=== PATIENT | female | born 2000 | race Two or more races ===

== ENCOUNTER 2020-12-28 08:23 | Outpatient (CLI) | payer BC ==
[2020-12-28 09:16] LABS: BILIRUBIN,URINE NEGATIVE (NEGATIVE); COLOR,URINE YELLOW (YELLOW); LEUKOCYTE ESTERASE ,URINE LARGE (NEGATIVE); NITRITE, URINE POSITIVE (NEGATIVE); PROTEIN,URINE NEGATIVE (NEGATIVE); UGLUCOSE NEGATIVE (NEGATIVE); UROBILINOGEN,URINE 0.2 EU/dL (0.2)
[2020-12-28 09:19] LABS: BASOPHILS % (AUTO) 0.4 % (0.0-2.0); EOSINOPHILS % (AUTO) 4.5 % (0.0-6.0); HEMATOCRIT 44 % (33-45); HEMOGLOBIN 14.4 g/dL (11.5-14.8); LYMPHOCYTES # (AUTO) 1.1 /CMM (0.8-4.8); LYMPHOCYTES % (AUTO) 24.5 % (20.0-44.0); MEAN CORPUSCULAR HGB CONC 33 g/dl (31.0-36.0); MEAN CORPUSCULAR VOLUME 91 fL (82-100); MONOCYTES # (AUTO) 0.5 /CMM (0.1-1.30); MONOCYTES % (AUTO) 10.4 % (2.0-12.0); NEUTROPHILS # (AUTO) 2.8 /CMM (1.8-8.9); NEUTROPHILS % (AUTO) 60.2 % (43.0-81.0); PLATELET COUNT (AUTO) 205 /CMM (150-450); RED BLOOD CELL COUNT(AUTO) 4.84 MIL/uL (4.0-5.2); WHITE BLOOD COUNT (AUTO) 4.6 K/uL (4.3-11.0)
[2020-12-28 09:50] LABS: THYROID STIMULATING HORMONE 1.256 uIU/mL (0.358-3.74)
[2020-12-28 10:05] LABS: ALBUMIN 3.7 g/dL (3.4-5.0); BILIRUBIN,TOTAL 0.3 mg/dL (0.2-1.0); CALCIUM, SERUM 8.6 mg/dL (8.5-10.1); CREATININE 0.5 mg/dL (0.6-1.3); POTASSIUM 3.6 mmol/L (3.5-5.1); TOTAL PROTEIN, SERUM 7.7 g/dL (6.4-8.2)
[2020-12-28 11:20] LABS: BACTERIA,URINE Many /HPF (None Seen); SQUAMOUS EPITHELIAL CELL,UR Moderate /HPF (None Seen); WBC,URINE TOO NUMEROUS TO COUN /HPF (0-3)
== END 2020-12-28 23:59 | disposition home or self-care (01) ==
LOC: LAB 08:23
PROVIDERS: ATTEND Family Medicine
DX: Z00.01 Encounter for general adult medical examination with abnormal findings (principal); Z91.018 Allergy to other foods
CPT/HCPCS: 80053-TC; 80061-TC; 81001; 82306; 82607-TC; 84439-TC; 84443-TC; 85025-TC; 86592; 87086-TC; 87491; 87591; 87806

== ENCOUNTER 2021-01-18 09:37 | Outpatient (CLI) | payer BC ==
[2021-01-18 11:17] LABS: ALBUMIN 4.1 g/dL (3.4-5.0); BILIRUBIN,DIRECT 0.1 mg/dL (0.0-0.2); BILIRUBIN,TOTAL 0.4 mg/dL (0.2-1.0); TOTAL PROTEIN, SERUM 7.6 g/dL (6.4-8.2)
== END 2021-01-18 23:59 | disposition home or self-care (01) ==
LOC: US 09:37
PROVIDERS: ATTEND Family Medicine
DX: E55.9 Vitamin D deficiency, unspecified (principal); N39.0 Urinary tract infection, site not specified; R94.5 Abnormal results of liver function studies
CPT/HCPCS: 36415; 76700-TC; 80076-TC; 82977-TC; 86317; 86709-TC; 86803; 87340

== ENCOUNTER 2021-07-31 10:47 | Outpatient (CLI) | payer BC | END 2021-07-31 23:59 | disposition home or self-care (01) | LOC: LAB 10:47 | PROVIDERS: ATTEND Family Medicine | DX: Z30.40 Encounter for surveillance of contraceptives, unspecified (principal) | CPT/HCPCS: 84703-TC ==

== ENCOUNTER 2021-10-22 11:52 | Outpatient (CLI) | payer BC | END 2021-10-22 23:59 | disposition home or self-care (01) | LOC: LAB 11:52 | PROVIDERS: ATTEND Family Medicine | DX: Z32.00 Encounter for pregnancy test, result unknown (principal) | CPT/HCPCS: 84703-TC ==

== ENCOUNTER → 2022-01-11 | Outpatient (CLI) | payer BC | END | disposition home or self-care (01) | LOC: LAB 10:25 | PROVIDERS: ATTEND Family Medicine | DX: Z30.40 Encounter for surveillance of contraceptives, unspecified (principal) | CPT/HCPCS: 84703-TC ==

== ENCOUNTER 2022-04-03 13:22 | Outpatient (CLI) | payer BC | END 2022-04-03 23:59 | disposition home or self-care (01) | LOC: LAB 13:22 | PROVIDERS: ATTEND Family Medicine | DX: Z30.40 Encounter for surveillance of contraceptives, unspecified (principal) | CPT/HCPCS: 84703-TC ==

== ENCOUNTER 2022-04-09 09:11 | Outpatient (CLI) | payer BC ==
[2022-04-09 10:58] LABS: BASOPHILS % (AUTO) 0.3 % (0.0-2.0); EOSINOPHILS % (AUTO) 1.2 % (0.0-6.0); HEMATOCRIT 42 % (33-45); HEMOGLOBIN 13.9 g/dL (11.5-14.8); LYMPHOCYTES # (AUTO) 1.4 K/uL (0.8-4.8); MEAN CORPUSCULAR HGB CONC 33 g/dl (31.0-36.0); MEAN CORPUSCULAR VOLUME 89 fL (82-100); MONOCYTES # (AUTO) 0.8 K/uL (0.1-1.30); MONOCYTES % (AUTO) 8.5 % (2.0-12.0); NEUTROPHILS # (AUTO) 6.9 K/uL (1.8-8.9); PLATELET COUNT (AUTO) 230 K/uL (150-450); RED BLOOD CELL COUNT(AUTO) 4.67 MIL/uL (4.0-5.2); WHITE BLOOD COUNT (AUTO) 9.2 K/uL (4.3-11.0)
[2022-04-09 11:01] LABS: ALBUMIN 3.8 g/dL (3.4-5.0); BILIRUBIN,TOTAL 0.5 mg/dL (0.2-1.0); CALCIUM, SERUM 8.9 mg/dL (8.5-10.1); CREATININE 0.7 mg/dL (0.6-1.3); POTASSIUM 3.4 mmol/L (3.5-5.1); TOTAL PROTEIN, SERUM 8.2 g/dL (6.4-8.2)
[2022-04-09 11:02] LABS: BILIRUBIN,URINE NEGATIVE (NEGATIVE); COLOR,URINE YELLOW (YELLOW); LEUKOCYTE ESTERASE ,URINE SMALL (NEGATIVE); NITRITE, URINE NEGATIVE (NEGATIVE); PROTEIN,URINE NEGATIVE (NEGATIVE); UGLUCOSE NEGATIVE (NEGATIVE); UROBILINOGEN,URINE 0.2 EU/dL (0.2)
[2022-04-09 11:03] LABS: BACTERIA,URINE Rare /HPF (None Seen); RBC,URINE 0-2 /HPF (0-2); SQUAMOUS EPITHELIAL CELL,UR Few /HPF (None Seen)
[2022-04-09 11:09] LABS: THYROID STIMULATING HORMONE 2.753 uIU/mL (0.358-3.74)
[2022-04-10 08:07] LABS: T3, FREE 3.4 pg/mL (2.0-4.4)
== END 2022-04-09 23:59 | disposition home or self-care (01) ==
LOC: LAB 09:11
PROVIDERS: ATTEND Family Medicine
DX: Z00.01 Encounter for general adult medical examination with abnormal findings (principal); Z11.3 Encounter for screening for infections with a predominantly sexual mode of transmission; E55.9 Vitamin D deficiency, unspecified
CPT/HCPCS: 80053-TC; 80061-TC; 81001; 82306; 83735-TC; 84439-TC; 84443-TC; 84481; 84550-TC; 85025-TC; 86592; 86593; 87086-TC; 87491; 87591; 87806

== ENCOUNTER 2022-04-16 10:26 | Outpatient (CLI) | payer BC ==
[2022-04-16 13:40] LABS: ALBUMIN 3.7 g/dL (3.4-5.0); BILIRUBIN,DIRECT 0.1 mg/dL (0.0-0.2); BILIRUBIN,TOTAL 0.3 mg/dL (0.2-1.0)
== END 2022-04-16 23:59 | disposition home or self-care (01) ==
LOC: LAB 10:26
PROVIDERS: ATTEND Family Medicine
DX: R94.5 Abnormal results of liver function studies (principal)
CPT/HCPCS: 36415; 80076-TC; 86317

== ENCOUNTER 2022-07-31 09:29 | Outpatient (CLI) | payer BC | END 2022-07-31 23:59 | disposition home or self-care (01) | LOC: LAB 09:29 | PROVIDERS: ATTEND Family Medicine | DX: N39.0 Urinary tract infection, site not specified (principal) | CPT/HCPCS: 87086-TC ==

== ENCOUNTER 2022-08-08 13:58 | Outpatient (CLI) | payer BC | END 2022-08-08 23:59 | disposition home or self-care (01) | LOC: LAB 13:58 | PROVIDERS: ATTEND Family Medicine | DX: Z02.83 Encounter for blood-alcohol and blood-drug test (principal) ==

== ENCOUNTER 2023-01-07 11:54 | Outpatient (CLI) | payer BC | END 2023-01-07 23:59 | disposition home or self-care (01) | LOC: LAB 11:54 | PROVIDERS: ATTEND Family Medicine | DX: Z32.00 Encounter for pregnancy test, result unknown (principal) | CPT/HCPCS: 36415 ==